=== PATIENT | female | born 2000 | race Caucasian/White ===

== ENCOUNTER 2021-01-29 21:13 | Emergency (ER) | payer OTHER ==
[~2021-01-29] VITALS: Ht 162.6 cm; Wt 104.8 kg
[2021-01-29 21:25] VITALS: BP 162/78
--- NOTE | 2021-01-29 22:00 | NUR ---
PATIENT WITH C/O BILATERAL EYE DISCOMFORT WITH SWELLING AND SOME DISCHARGE FOR 1 DAY. PATIENT DENIES ANY ALLERGIES, HAS NOT TAKEN ANY MEDICATIONS, OR DONE ANYTHING UNUSUAL THAT MAY HAVE TRIGGERED AN ALLERGIC REACTION. PATIENT STATES SOME VISUAL CHANGES DUE TO SWELLING. PATIENT IN NO APPARENT ACUTE DISTRESS. PMH: NONE
--- NOTE | 2021-01-29 22:05 | NUR ---
PT AMBULATED TO BED 12.
[2021-01-29] MEDS ORDERED: GENTAMICIN OP 0.3% 15 MG/5 ML BTL OP ONE (23:10)
[2021-01-29] MEDS ORDERED: TETRACAINE HCL/PF 0.5% OPTH 4 ML BTL OP ONE (23:10)
[2021-01-29] MEDS ORDERED: TOBR5SOL17 LEFT EYE (23:14)
[2021-01-30 01:41] VITALS: BP 124/66
== END 2021-01-29 23:30 | disposition home or self-care (01) ==
LOC: MED 21:13
DX: H10.32 Unspecified acute conjunctivitis, left eye (principal)
CPT/HCPCS: 99283

== ENCOUNTER 2022-03-10 22:36 | Observation (INO) | payer SELFPAY ==
[~2022-03-10] VITALS: Ht 160 cm; Wt 97.5 kg
[~2022-03-10 22:36] MED LIST: TOBR5SOL17 LEFT EYE
[2022-03-10 23:03] VITALS: BP 129/85
[2022-03-10] MEDS ORDERED: PRETAB PO (23:03)
== END 2022-03-10 23:20 | disposition home or self-care (01) ==
LOC: MLD 22:36
PROVIDERS: ADMIT Obstetrics & Gynecology; ATTEND Obstetrics & Gynecology
DX: O92.29 Other disorders of breast associated with pregnancy and the puerperium (principal); Z3A.22 22 weeks gestation of pregnancy
CPT/HCPCS: G0378; G0379

== ENCOUNTER 2022-06-17 13:00 | Observation (INO) | payer BC ==
[~2022-06-17] VITALS: Ht 162.6 cm; Wt 98.0 kg
[~2022-06-17 13:00] MED LIST changes: +PRETAB PO
[2022-06-17 13:20] VITALS: BP 125/85
[2022-06-17] MEDS: LACTATED RINGERS 1,000 ML IV SCH ×2 (14:07→16:05)
[2022-06-17 14:17] LABS: BASOPHILS % (AUTO) 0.4 % (0.0-2.0); EOSINOPHILS % (AUTO) 0.5 % (0.0-4.0); HEMATOCRIT 35.3 % (36-48); HEMOGLOBIN 11.4 g/dL (12.0-16.0); LYMPHOCYTES # (AUTO) 2.3 K/uL (2.5-16.5); MEAN CORPUSCULAR HEMOGLOBIN 25 pg (27-31); MEAN CORPUSCULAR HGB CONC 32 g/dL (33-37); MEAN CORPUSCULAR VOLUME 76.4 fL (80-94); MONOCYTES # (AUTO) 0.4 K/uL (0.8-1.0); MONOCYTES % (AUTO) 5.8 % (1.7-9.3); NEUTROPHILS # (AUTO) 3.9 K/uL (1.8-7.7); NEUTROPHILS % (AUTO) 58.3 % (42.2-75.2); PLATELET COUNT (AUTO) 326 K/uL (140-450); RED BLOOD CELL COUNT(AUTO) 4.63 MIL/uL (4.20-5.40); WHITE BLOOD COUNT (AUTO) 6.7 K/uL (4.5-11.0)
[2022-06-17 14:19] LABS: BILIRUBIN,URINE NEGATIVE (NEGATIVE); BLOOD, URINE NEGATIVE (NEGATIVE); COLOR,URINE YELLOW (YELLOW); LEUKOCYTE ESTERASE ,URINE 2+ (NEGATIVE); NITRITE, URINE NEGATIVE (NEGATIVE); UGLUCOSE NEGATIVE (NEGATIVE)
[2022-06-17 14:20] LABS: APPEARANCE,URINE SLIGHTLY CLOUDY (CLEAR)
[2022-06-17 14:38] LABS: ALBUMIN 2.6 g/dL (3.4-5.0); ANION GAP 13.4 (8-16); CARBON DIOXIDE 23.5 mmol/L (21-32); CREATININE 0.7 mg/dL (0.6-1.3); POTASSIUM 3.9 mmol/L (3.5-5.1); TOTAL BILIRUBIN 0.3 mg/dL (0.0-1.0)
[2022-06-17 15:13] LABS: BARBITURATE, URINE NEGATIVE ng/ml (NEG <=200); BENZODIAZEPINE, URINE NEGATIVE ng/mL (NEG <=200); CANNABINOID, URINE NEGATIVE ng/mL (NEG <=50); COCAINE, URINE NEGATIVE ng/mL (NEG <=300); OPIATE, URINE NEGATIVE ng/mL (NEG <=2000); PHENCYCLIDINE SCREEN,URINE NEGATIVE ng/mL (NEG <=25)
[2022-06-17 16:50] LABS: RBC,URINE NONE SEEN /HPF (0-5)
--- NOTE | 2022-06-17 17:30 | NUR ---
PATIENT HAS BEEN SCREENED AND CATEGORIZED LOW NUTRITION RISK. PATIENT WILL BE SEEN WITHIN 7 DAYS OF ADMISSION. 06/24/22 REVIEWED BY RADHA WAGON[address]
== END 2022-06-17 17:10 | disposition home or self-care (01) ==
LOC: MLD 13:00
PROVIDERS: ADMIT Obstetrics & Gynecology; ATTEND Obstetrics & Gynecology
DX: O36.8130 Decreased fetal movements, third trimester, not applicable or unspecified (principal); Z20.822 Contact with and (suspected) exposure to COVID-19; O62.9 Abnormality of forces of labor, unspecified; O26.893 Other specified pregnancy related conditions, third trimester; R42 Dizziness and giddiness; Z3A.37 37 weeks gestation of pregnancy
CPT/HCPCS: 36415; 76819; 80053; 80305; 81001; 85025; 86592; 86703; 86762; 86886; 86900; 86901; 87086; 87426; 96360; 96361; G0378; G0379; Q0092